=== PATIENT | female | born 1940 | race Caucasian/White ===

== ENCOUNTER 2025-01-04 10:18 | Emergency (ER) | payer MEDICARE ==
[2025-01-04 10:40] VITALS: PULSE 58; RESP 16; TEMP 97.7; O2SAT 97
[2025-01-04] MEDS ORDERED: TYLENOL325 MG PO (10:53)
[2025-01-04] MEDS ORDERED: DIPHENHYDRAMINE25 M2 PO (10:53)
[2025-01-04] MEDS ORDERED: AZITHROMYCIN250 MG PO (11:27)
[2025-01-04] MEDS ORDERED: ACETAMINOPHEN 325 MG TAB PO ONE (11:30)
[2025-01-04] MEDS: DEXAMETHASONE SOD PHOS INJ 4 MG/ML SDV IM ONE (11:36)
== END 2025-01-04 11:40 | disposition home or self-care (01) ==
LOC: FSED 10:37
DX: R05.9 Cough, unspecified (principal); J40 Bronchitis, not specified as acute or chronic; J06.9 Acute upper respiratory infection, unspecified; Z11.52 Encounter for screening for COVID-19
CPT/HCPCS: 0223U; 83518; 87400; 99284; J1100

== ENCOUNTER 2025-01-07 10:29 | Emergency (ER) | payer MEDICARE ==
[~2025-01-07] VITALS: Ht 165.1 cm; Wt 56.2 kg
[~2025-01-07 10:29] MED LIST: AZITHROMYCIN250 MG PO; DIPHENHYDRAMINE25 M2 PO; TYLENOL325 MG PO
[2025-01-07 10:34] VITALS: PULSE 65; RESP 16; TEMP 98.5
[2025-01-07 11:33] VITALS: BP 112/58; PULSE 65; RESP 16; TEMP 98.5; O2SAT 96
== END 2025-01-07 11:36 | disposition home or self-care (01) ==
LOC: FSED 10:41
DX: R05.9 Cough, unspecified (principal); J06.9 Acute upper respiratory infection, unspecified; I10 Essential (primary) hypertension; Z98.0 Intestinal bypass and anastomosis status
CPT/HCPCS: 99283